=== PATIENT | female | born 1950 | race Caucasian/White ===

== ENCOUNTER → 2018-02-19 | Outpatient (CLI) | payer MEDICARE ==
--- NOTE | 2018-02-20 10:48 | MM ---
Reason for exam: screening (asymptomatic). Last mammogram was performed 1 year and 1 month ago. History: Patient is postmenopausal. Core biopsy of the right breast, 1989. Excisional biopsy of the right breast, 1989. Physical Findings: A clinical breast exam by your physician is recommended on an annual basis and results should be correlated with mammographic findings. MG 3D Screening Mammo W/Cad Bilateral CC and MLO view(s) were taken. Prior study comparison: January 19, 2017, bilateral MG 3d screening mammo w/cad. March 12, 2015, bilateral MG screening mammo w CAD. The breast tissue is heterogeneously dense. This may lower the sensitivity of mammography. There is chronic nodularity in the right breast. There is no discrete abnormality. ASSESSMENT: Negative, BI-RAD 1 RECOMMENDATION: Routine screening mammogram of both breasts in 1 year.
== END | disposition home or self-care (01) ==
LOC: RADMAMWWP 13:34
PROVIDERS: ATTEND Family Medicine
DX: Z12.31 Encounter for screening mammogram for malignant neoplasm of breast (principal)
CPT/HCPCS: 77063; 77067

== ENCOUNTER 2019-10-16 17:10 | Emergency (ER) | payer MEDICARE ==
[2019-10-16 17:22] VITALS: TEMP 98.1
[2019-10-16] MEDS ORDERED: SODIUM CHLORIDE 0.9% 1,000 ML IV STA (17:24)
--- NOTE | 2019-10-16 17:25 | ED ---
Arrhythmia/Palpitations HPI - General Chief Complaint: Arrhythmia/Palpitations Stated Complaint: palpitations Time Seen by Provider: 10/16/19 17:24 Source: patient, RN notes reviewed, old records reviewed Mode of arrival: wheelchair Limitations: no limitations - History of Present Illness Initial Comments: This is a 61-year-old female to the ER for evaluation regards to maybe medication r palpitations suffering from abnormally elevated blood pressure as of late, patient was feeling palpitations persistent palpitations without pain generalized weakness and fatigue. Patient recently changed medications for increasing better control of her blood pressure. Reactive abnormal medications with urinary palpitations not feeling well. Otherwise no headache chest pain shortness with abdominal pain admits to mild depression but not homicidal or suicidal. No drugs or alcohol MD Complaint: palpitations -: days(s) Context: occurred during rest, change in medication Associated Symptoms: other (weakness) Treatments Prior to Arrival: other (none) - Related Data Home Medications Medication Instructions Recorded Confirmed Valsartan/Hydrochlorothiazide 1 tab PO DAILY 09/24/13 11/01/15 [Diovan Hct 80-12.5 mg Tablet] buPROPion XL [Wellbutrin XL] 300 mg PO DAILY 09/24/13 11/01/15 metFORMIN HCL [Glucophage] 500 mg PO DAILY 09/24/13 11/01/15 Atorvastatin [Lipitor] 20 mg PO HS 01/24/14 11/01/15 Citalopram Hydrobromide [CeleXA] 40 mg PO DAILY 01/24/14 11/01/15 LORazepam [Ativan] 1 mg PO HS 11/01/15 11/01/15 Previous Rx's Medication Instructions Recorded Ibuprofen [Motrin] 600 mg PO Q6HR PRN #20 tab 10/31/15 Multivitamins, Thera [Multivitamin 1 each PO DAILY@1200 #30 tab 11/04/15 (formulary)] Sulfamethox-Tmp 800-160Mg [Bactrim 1 tab PO Q12HR #20 tab 11/04/15 DS 800-160 mg] Allergies Allergy/AdvReac Type Severity Reaction Status Date / Time erythromycin base Allergy Nausea & Verified 10/16/19 17:22 Vomiting Review of Systems ROS Statement: Those systems with pertinent positive or pertinent negative responses have been documented in the HPI. ROS Other: All systems not noted in ROS Statement are negative. Past Medical History Past Medical History: Diabetes Mellitus, Hyperlipidemia, Hypertension, Sleep Apnea/CPAP/BIPAP Additional Past Medical History / Comment(s): IBS History of Any Multi-Drug Resistant Organisms: None Reported Past Surgical History: Breast Surgery, Hysterectomy, Tonsillectomy Additional Past Surgical History / Comment(s): breast biopsy, back surgery 2013 with 6 screws, cataract Past Anesthesia/Blood Transfusion Reactions: No Reported Reaction, Motion Sickness Past Psychological History: Depression Smoking Status: Never smoker Past Alcohol Use History: Occasional Past Drug Use History: None Reported - Past Family History Father Family Medical History: Congestive Heart Failure (CHF) General Exam Limitations: no limitations General appearance: alert, in no apparent distress Head exam: Present: atraumatic, normocephalic, normal inspection Eye exam: Present: normal appearance, PERRL, EOMI. Absent: scleral icterus, conjunctival injection, periorbital swelling ENT exam: Present: normal exam, mucous membranes moist Neck exam: Present: normal inspection. Absent: tenderness, meningismus, lymphadenopathy Respiratory exam: Present: normal lung sounds bilaterally. Absent: respiratory distress, wheezes, rales, rhonchi, stridor Cardiovascular Exam: Present: regular rate, normal rhythm, normal heart sounds. Absent: systolic murmur, diastolic murmur, rubs, gallop, clicks GI/Abdominal exam: Present: soft, normal bowel sounds. Absent: distended, tenderness, guarding, rebound, rigid Extremities exam: Present: normal inspection, full ROM, normal capillary refill. Absent: tenderness, pedal edema, joint swelling, calf tenderness Back exam: Present: normal inspection Neurological exam: Present: alert, oriented X3, CN II-XII intact Psychiatric exam: Present: normal affect, normal mood Skin exam: Present: warm, dry, intact, normal color. Absent: rash Course Vital Signs 10/16/19 17:15 Temperature 98.1 F Pulse Rate 91 Respiratory 18 Rate Blood Pressure 134/87 O2 Sat by Pulse 97 Oximetry - Reevaluation(s) Reevaluation #1: 10/16/19 19:12 Medical record is reviewed Reevaluation #2: 10/16/19 19:12 No new significant symptoms will continue to stop new medication Medical Decision Making - Medical Decision Making 61 female with no significant findings labwork is normal symptoms are normal patient can be discharged home to follow-up with primary care - Lab Data Result diagrams: 10/16/19 17:58 10/16/19 17:58 Lab Results 10/16/19 10/16/19 10/16/19 Range/Units 17:58 17:58 17:58 WBC 7.4 (3.8-10.6) k/uL RBC 4.74 (3.80-5.40) m/uL Hgb 13.8 (11.4-16.0) gm/dL Hct 41.6 (34.0-46.0) % MCV 87.6 (80.0-100.0) fL MCH 29.1 (25.0-35.0) pg MCHC 33.2 (31.0-37.0) g/dL RDW 12.9 (11.5-15.5) % Plt Count 280 (150-450) k/uL Neutrophils % 48 % Lymphocytes % 41 % Monocytes % 5 % Eosinophils % 3 % Basophils % 1 % Neutrophils # 3.6 (1.3-7.7) k/uL Lymphocytes # 3.1 (1.0-4.8) k/uL Monocytes # 0.4 (0-1.0) k/uL Eosinophils # 0.2 (0-0.7) k/uL Basophils # 0.1 (0-0.2) k/uL PT 9.9 (9.0-12.0) sec INR 1.0 (<1.2) APTT 23.7 (22.0-30.0) sec Sodium 138 (137-145) mmol/L Potassium 3.9 (3.5-5.1) mmol/L Chloride 105 (98-107) mmol/L Carbon Dioxide 25 (22-30) mmol/L Anion Gap 8 mmol/L BUN 23 H (7-17) mg/dL Creatinine 0.71 (0.52-1.04) mg/dL Est GFR (CKD-EPI)AfAm >90 (>60 ml/min/1.73 sqM) Est GFR (CKD-EPI)NonAf 88 (>60 ml/min/1.73 sqM) Glucose 101 H (74-99) mg/dL Calcium 9.8 (8.4-10.2) mg/dL Phosphorus 3.8 (2.5-4.5) mg/dL Magnesium 2.0 (1.6-2.3) mg/dL Total Bilirubin 0.4 (0.2-1.3) mg/dL AST 25 (14-36) U/L ALT 21 (4-34) U/L Alkaline Phosphatase 89 (38-126) U/L Troponin I (0.000-0.034) ng/mL NT-Pro-B Natriuret Pep pg/mL Total Protein 6.7 (6.3-8.2) g/dL Albumin 4.2 (3.5-5.0) g/dL TSH 2.790 (0.465-4.680) mIU/L Urine Color Urine Appearance (Clear) Urine pH (5.0-8.0) Ur Specific [place] (1.001-1.035) Urine Protein (Negative) Urine Glucose (UA) (Negative) Urine Ketones (Negative) Urine Blood (Negative) Urine Nitrite (Negative) Urine Bilirubin (Negative) Urine Urobilinogen (<2.0) mg/dL Ur Leukocyte Esterase (Negative) Urine WBC (0-5) /hpf Ur Squamous Epith Cells (0-4) /hpf Amorphous Sediment (None) /hpf Urine Bacteria (None) /hpf Urine Mucus (None) /hpf 10/16/19 10/16/19 10/16/19 Range/Units 17:58 17:58 18:00 WBC (3.8-10.6) k/uL RBC (3.80-5.40) m/uL Hgb (11.4-16.0) gm/dL Hct (34.0-46.0) % MCV (80.0-100.0) fL MCH (25.0-35.0) pg MCHC (31.0-37.0) g/dL RDW (11.5-15.5) % Plt Count (150-450) k/uL Neutrophils % % Lymphocytes % % Monocytes % % Eosinophils % % Basophils % % Neutrophils # (1.3-7.7) k/uL Lymphocytes # (1.0-4.8) k/uL Monocytes # (0-1.0) k/uL Eosinophils # (0-0.7) k/uL Basophils # (0-0.2) k/uL PT (9.0-12.0) sec INR (<1.2) APTT (22.0-30.0) sec Sodium (137-145) mmol/L Potassium (3.5-5.1) mmol/L Chloride (98-107) mmol/L Carbon Dioxide (22-30) mmol/L Anion Gap mmol/L BUN (7-17) mg/dL Creatinine (0.52-1.04) mg/dL Est GFR (CKD-EPI)AfAm (>60 ml/min/1.73 sqM) Est GFR (CKD-EPI)NonAf (>60 ml/min/1.73 sqM) Glucose (74-99) mg/dL Calcium (8.4-10.2) mg/dL Phosphorus (2.5-4.5) mg/dL Magnesium (1.6-2.3) mg/dL Total Bilirubin (0.2-1.3) mg/dL AST (14-36) U/L ALT (4-34) U/L Alkaline Phosphatase (38-126) U/L Troponin I <0.012 (0.000-0.034) ng/mL NT-Pro-B Natriuret Pep 37 pg/mL Total Protein (6.3-8.2) g/dL Albumin (3.5-5.0) g/dL TSH (0.465-4.680) mIU/L Urine Color Yellow Urine Appearance Cloudy H (Clear) Urine pH 7.0 (5.0-8.0) Ur Specific [place] 1.029 (1.001-1.035) Urine Protein Negative (Negative) Urine Glucose (UA) Negative (Negative) Urine Ketones Negative (Negative) Urine Blood Negative (Negative) Urine Nitrite Negative (Negative) Urine Bilirubin Negative (Negative) Urine Urobilinogen 3.0 (<2.0) mg/dL Ur Leukocyte Esterase Large H (Negative) Urine WBC 41 H (0-5) /hpf Ur Squamous Epith Cells 4 (0-4) /hpf Amorphous Sediment Rare H (None) /hpf Urine Bacteria Rare H (None) /hpf Urine Mucus Few H (None) /hpf - Radiology Data Radiology results: report reviewed (Chest x-rays negative for acute disease), image reviewed Disposition Clinical Impression: Palpitations Disposition: HOME SELF-CARE Condition: Good Instructions (If sedation given, give patient instructions): Heart Palpitations (ED) Is patient prescribed a controlled substance at d/c from ED?: No Referrals: Ori Parra MD [Primary Care Provider] - 1-2 days
[2019-10-16 18:07] LABS: Basophils # (A) 0.1 k/uL (0-0.2); Basophils % (A) 1 %; Eosinophils # (A) 0.2 k/uL (0-0.7); Eosinophils % (A) 3 %; HCT 41.6 % (34.0-46.0); HGB 13.8 gm/dL (11.4-16.0); Lymphocytes # (A) 3.1 k/uL (1.0-4.8); Lymphocytes % (A) 41 %; MCH 29.1 pg (25.0-35.0); MCHC 33.2 g/dL (31.0-37.0); MCV 87.6 fL (80.0-100.0); Mean Platelet Volume 7.2; Monocytes # (A) 0.4 k/uL (0-1.0); Monocytes % (A) 5 %; Neutrophils # (A) 3.6 k/uL (1.3-7.7); Neutrophils % (A) 48 %; Platelet Count 280 k/uL (150-450); RBC 4.74 m/uL (3.80-5.40); RDW 12.9 % (11.5-15.5); WBC 7.4 k/uL (3.8-10.6)
[2019-10-16 18:19] LABS: Amorphous Sediment,Urine Rare /hpf; Appearance,Urine Cloudy (Clear); Bacteria,Urine Rare /hpf; Bilirubin,Urine Negative (Negative); Blood,Urine Negative (Negative); Color,Urine Yellow; Glucose,Urine (UA) Negative (Negative); Ketones,Urine Negative (Negative); Leukocyte Esterase,Urine Large (Negative); Mucus,Urine Few /hpf; Nitrite,Urine Negative (Negative); Protein,Urine Negative (Negative); Specific Gravity,Urine 1.029 (1.001-1.035); Squamous Epithelial Cell,Urine 4 /hpf (0-4); WBC,Urine 41 /hpf (0-5)
[2019-10-16 18:19] LABS: ALT 21 U/L (4-34); AST 25 U/L (14-36); African American GFR (CKD) >90 (>60 ml/min/1.73 sqM); Albumin 4.2 g/dL (3.5-5.0); Alkaline Phosphatase 89 U/L (38-126); Anion Gap 8 mmol/L; Blood Urea Nitrogen 23 mg/dL (7-17); Calcium 9.8 mg/dL (8.4-10.2); Carbon Dioxide 25 mmol/L (22-30); Chloride 105 mmol/L (98-107); Glucose 101 mg/dL (74-99); Non-African American GFR(CKD) 88 (>60 ml/min/1.73 sqM); Phosphorus 3.8 mg/dL (2.5-4.5); Potassium 3.9 mmol/L (3.5-5.1); Sodium 138 mmol/L (137-145); Total Bilirubin 0.4 mg/dL (0.2-1.3); Total Protein 6.7 g/dL (6.3-8.2)
[2019-10-16 18:25] LABS: Partial Thromboplastin Time 23.7 sec (22.0-30.0); Prothrombin Time 9.9 sec (9.0-12.0)
--- NOTE | 2019-10-16 18:38 | XR ---
EXAMINATION TYPE: XR chest 2V DATE OF EXAM: 10/16/2019 COMPARISON: 01/24/2014 HISTORY: Chest pain TECHNIQUE: 2 views. FINDINGS: Heart and mediastinum are normal. Lungs are clear. Diaphragm is normal. Bony thorax appears normal. T here is posterior fusion surgery in the lower thoracic spine. There is thoracolumbar kyphotic deformi ty. There is 40% anterior wedging of T11 vertebra. IMPRESSION: No active cardiopulmonary disease. No adverse change compared to old exam.
[2019-10-16 20:12] VITALS: BP 145/81; PULSE 76; RESP 17
== END 2019-10-16 20:18 | disposition home or self-care (01) ==
LOC: EC 17:10
DX: R00.2 Palpitations (principal); R53.1 Weakness; F32.9 Major depressive disorder, single episode, unspecified; I10 Essential (primary) hypertension; G47.30 Sleep apnea, unspecified; E78.5 Hyperlipidemia, unspecified; E11.9 Type 2 diabetes mellitus without complications; Z79.84 Long term (current) use of oral hypoglycemic drugs; Z79.899 Other long term (current) drug therapy; Z88.1 Allergy status to other antibiotic agents
CPT/HCPCS: 36415; 93005; 83880; 80053; 83735; 84100; 84443; 84484; 85025; 85610; 85730; 81001; 87086; 71046; 99285; 96365; 96361; J0696

== ENCOUNTER → 2019-12-04 | Outpatient (CLI) | payer MEDICARE ==
--- NOTE | 2019-12-05 08:00 | BD ---
EXAMINATION TYPE: Axial Bone Density DATE OF EXAM: 12/04/2019 COMPARISON: DEXA bone scan 2011 CLINICAL HISTORY: Postmenopausal female Height: 65 Weight: 198.0 FRAX RISK QUESTIONS: Alcohol (3 or more units per day): no Family History (Parent hip fracture): no Glucocorticoids (More than 3mos): no (Ex: prednisone, prednisolone, methylprednisolone, dexamethasone, and hydrocortisone). History of Fracture in Adulthood: yes Secondary Osteoporosis: 1. Type 1 Diabetes: no 2. Hyperthyroidism: no 3. Menopause before 45: no 4. Malnutrition: no 5. Chronic liver disease: no Rheumatoid Arthritis: no Current Tobacco Use: no RISK FACTORS HISTORY OF: Spine Fracture: t spine When: 2013 Surgery to Spine/Hip(right/left)/Wrist (right/left): T-spine When: 2013 Family History of Osteoporosis: yes Active: sometimes Diet low in dairy products/other sources of calcium: no Postmenopausal woman: age 52 Lost more than 2 inches in height since high school: no MEDICATIONS: blood pressure meds, celexa, bupropion Additional History: EXAM MEASUREMENTS: Bone mineral densitometry was performed using the [employer] System. Bone mineral density as measured about the Lumbar spine is: ----- L1-L4(G/cm2): 1.409 T Score Values are as follows: ----- L2: 1.1 ----- L3: 2.3 ----- L4: 1.8 ----- L1-L4: 1.9 Bone mineral density has: increased 0.5 % since study of: 09.28.2011 Bone mineral density about the R hip (g/cm2): 0.969 Bone mineral density about the L hip (g/cm2):0.939 T Score values are as follows: -----R Neck: -0.5 -----L Neck: -0.7 -----R Total: 0.3 -----L Total: 0.2 Bone mineral density has: decreased -1.0 % since study of: 09.28.2011 IMPRESSION: Normal (Values between +1 and -1 indicate normal bone mass). Consider repeating this study in 5 year s or sooner if there is some new clinical indication. NOTE: T-SCORE=SD OF THE YOUNG ADULT MEAN.
--- NOTE | 2019-12-05 14:11 | MM ---
Reason for exam: screening (asymptomatic). Last mammogram was performed 1 year and 9 months ago. History: Patient is postmenopausal. Core biopsy of the right breast, 1989. Excisional biopsy of the right breast, 1989. Physical Findings: A clinical breast exam by your physician is recommended on an annual basis and results should be correlated with mammographic findings. MG 3D Screening Mammo W/Cad Bilateral CC and MLO view(s) were taken. Prior study comparison: February 19, 2018, bilateral MG 3d screening mammo w/cad. January 19, 2017, bilateral MG 3d screening mammo w/cad. The breast tissue is heterogeneously dense. This may lower the sensitivity of mammography. Finding #1: There is a mass in the upper outer quadrant of the right breast. Finding #2: There are typically benign calcifications in both breasts. Unchanged focal asymmetry. No significant changes in finding since February 19, 2018 and January 19, 2017. ASSESSMENT: Benign, BI-RAD 2 RECOMMENDATION: Routine screening mammogram of both breasts in 1 year.
== END | disposition home or self-care (01) ==
LOC: RADMAMWWP 14:47
PROVIDERS: ATTEND Family Medicine
DX: Z12.31 Encounter for screening mammogram for malignant neoplasm of breast (principal); Z78.0 Asymptomatic menopausal state
CPT/HCPCS: 77063; 77067; 77080

== ENCOUNTER → 2021-12-06 | Outpatient (CLI) | payer MEDICARE ==
--- NOTE | 2021-12-06 17:14 | BD ---
EXAMINATION TYPE: Axial Bone Density DATE OF EXAM: 12/06/2021 COMPARISON: 12.04.2019 STUDY, UNAVAILABLE....TRENDED TO 09.28.2011 STUDY CLINICAL HISTORY: 71 years year old Female. ICD-10 CODE: Z13.820 Screening Osteoporosis Height: 64 Weight: 192 FRAX RISK QUESTIONS: Family History (Parent hip fracture): YES History of Fracture in Adulthood: YES RISK FACTORS HISTORY OF: HX OF FX TO T-SPINE AT AGE 61 Surgery to Spine....THORACIC SPINE ONLY, FROM FX TO T SPINE AT AGE 61 YRS OLD Family History of Osteoporosis: YES Postmenopausal woman: YES, AT 52 YRS OLD Hyperparathyroidism: NO Adrenal Insufficiency: NO MEDICATIONS: Prednisone or other steroids: IN THE PAST, BUT NONE NOW Additional Medications: BP MEDS, CELEXA, BUPROPION, METFORMIN, REFLUX MEDS, STATIN FOR CHOLESTEROL, Additional History: HYPERTENSION, DIABETIC, REFLUX, ANXIETY, CHOLESTEROL, EXAM MEASUREMENTS: Bone mineral densitometry was performed using the [employer] System. Bone mineral density as measured about the Lumbar spine is: ----- L1-L4(G/cm2): 1.391 T Score Values are as follows: ----- L1: 1.7 ----- L2: 0.0 ----- L3: 2.1 ----- L4: 2.1 ----- L1-L4: 1.8 Bone mineral density has: Increased 0.7% SINCE: 09.28.2011 Bone mineral density about the R hip (g/cm2): 1.061 Bone mineral density about the L hip (g/cm2): 1.006 T Score values are as follows: -----R Neck: -0.6 -----L Neck: -0.8 -----R Total: 0.4 -----L Total: 0.0 Bone mineral density has: Decreased -1.8% SINCE: 09.28.2011 FRAX%s: The graph provided illustrates a 19.5%nce for a major osteoporotic fx and a 2.4%ance for the hips probability for fx in 10 years time. IMPRESSION: Normal (Values between +1 and -1 indicate normal bone mass). Consider repeating this study in 5 year s or sooner if there is some new clinical indication. NOTE: T-SCORE=SD OF THE YOUNG ADULT MEAN.
--- NOTE | 2021-12-07 12:19 | MM ---
Reason for Exam: Screening (asymptomatic). Last mammogram was performed 2 year(s) and 0 month(s) ago. Patient History: Menarche at age 15. First Full-Term at age 24. Left ovary removed at age 44. Hysterectomy at age 44. Postmenopausal. 1989, Core Biopsy on the Right side. 1989, Excisional Biopsy on the Right side. Risk Values: Viola 5 year model risk: 2.1%. NCI Lifetime model risk: 6.2%. Prior Study Comparison: 01/19/2017 Bilateral Screening Mammogram, [facility]. 02/19/2018 Bilateral Screening Mammogram, [facility]. 12/04/2019 Bilateral Screening Mammogram, [facility]. Tissue Density: The breast tissue is heterogeneously dense. This may lower the sensitivity of mammography. Findings: Analyzed By CAD. There is a bilaterally symmetric density remain unchanged. Unchanged intramammary lymph node upper outer quadrant right breast. No significant change from prior exams. Overall Assessment: Benign, BI-RAD 2 Management: Screening Mammogram of both breasts in 1 year. 1. Patient should continue monthly self breast exams. 2. A clinical breast exam by your physician is recommended on an annual basis. 3. This exam should not preclude additional follow-up of suspicious palpable abnormalities. Electronically signed and approved by: Mami Suarez M.D. Radiologist
== END | disposition home or self-care (01) ==
LOC: RADBDWWP 10:21
PROVIDERS: ATTEND Family Medicine
DX: Z12.31 Encounter for screening mammogram for malignant neoplasm of breast (principal); Z13.820 Encounter for screening for osteoporosis; I10 Essential (primary) hypertension; E11.9 Type 2 diabetes mellitus without complications; Z78.0 Asymptomatic menopausal state
CPT/HCPCS: 77063; 77067; 77080

== ENCOUNTER → 2023-02-20 | Outpatient (CLI) | payer MEDICARE ==
--- NOTE | 2023-02-21 21:08 | MM ---
Reason for Exam: Screening (asymptomatic). Last mammogram was performed 1 year(s) and 3 month(s) ago. Patient History: Menarche at age 15. First Full-Term at age 24. Left ovary removed at age 44. Hysterectomy at age 44. Postmenopausal. Patient has history of breast feeding. 1989, Core Biopsy on the Right side. 1989, Excisional Biopsy on the Right side. Daughter had breast cancer, age 41. Risk Values: Viola 5 year model risk: 4.5%. NCI Lifetime model risk: 12.2%. Prior Study Comparison: 02/19/2018 Bilateral Screening Mammogram, [facility]. 12/04/2019 Bilateral Screening Mammogram, [facility]. 12/06/2021 Bilateral MG 3D screening mammo w/cad, [facility]. Tissue Density: The breast tissue is heterogeneously dense. This may lower the sensitivity of mammography. Findings: Analyzed By CAD. There is chronic nodularity on the right. There is no suspicious group of microcalcifications or new suspicious mass in either breast. Overall Assessment: Benign, BI-RAD 2 Management: Screening Mammogram of both breasts in 1 year. See note below in regards to patient's increased five-year Viola score. Patient should continue monthly self-breast exams. A clinical breast exam by your physician is recommended on an annual basis. This exam should not preclude additional follow-up of suspicious palpable abnormalities. Note on Viola scores and lifetime risk: 1. A Viola score greater than 3% is considered moderate risk. If this is the case, consider specialist referral to assess eligibility for a risk reducing agent. 2. If overall lifetime risk for the development of breast cancer is 20% or higher, the patient may qualify for future screening with alternating mammogram and breast MRI. Electronically signed and approved by: Mami Suarez M.D. Radiologist
== END | disposition home or self-care (01) ==
LOC: RADMAMWWP 11:31
PROVIDERS: ATTEND Family Medicine
DX: Z12.31 Encounter for screening mammogram for malignant neoplasm of breast (principal); Z80.3 Family history of malignant neoplasm of breast; Z78.0 Asymptomatic menopausal state
CPT/HCPCS: 77063; 77067

== ENCOUNTER 2023-11-16 08:28 | Emergency (ER) | payer MEDICARE ==
[2023-11-16 08:34] VITALS: RESP 18; TEMP 97.4
--- NOTE | 2023-11-16 09:02 | ED ---
General Adult HPI - General Chief complaint: Recheck/Abnormal Lab/Rx Stated complaint: high blood pressure Time Seen by Provider: 11/16/23 08:38 Source: patient, RN notes reviewed, old records reviewed Mode of arrival: ambulatory Limitations: physical limitation - History of Present Illness Initial comments: 73-year-old female presenting for evaluation of hypertension, anxiety, restlessness after starting prednisone yesterday. Patient does state that her blood pressure has been trending up over the past 1 week and she contacted her primary care provider for medication adjustment. However after starting prednisone this number has increased further she states she did not feel well after taking the prednisone. No fever. No chest pain. Mild nausea no vomiting. She also states she took an edible THC product yesterday which is abnormal for her. - Related Data Home Medications Medication Instructions Recorded Confirmed buPROPion XL [Wellbutrin XL] 300 mg PO DAILY 09/24/13 11/16/23 Atorvastatin [Lipitor] 20 mg PO HS 01/24/14 11/16/23 Citalopram Hydrobromide [CeleXA] 20 mg PO DAILY 11/16/23 11/16/23 Eszopiclone [Lunesta] 2 mg PO HS 11/16/23 11/16/23 Losartan/Hydrochlorothiazide 1 tab PO DAILY 11/16/23 11/16/23 [Hyzaar 100-25 Tablet] Metoprolol Succinate (ER) [Toprol 50 mg PO DAILY 11/16/23 11/16/23 Xl] Metoprolol Tartrate [Lopressor] 25 mg PO DAILY PRN 11/16/23 11/16/23 Pramipexole [Mirapex] 0.125 mg PO HS 11/16/23 11/16/23 metFORMIN HCL ER [Glucophage XR] 500 mg PO DAILY 11/16/23 11/16/23 rOPINIRole HCL [Requip] 0.25 mg PO HS 11/16/23 11/16/23 traMADol HCL 50 mg PO Q8H PRN 11/16/23 11/16/23 Previous Rx's Medication Instructions Recorded amLODIPine [Norvasc] 5 mg PO DAILY #30 tab 11/16/23 Allergies Allergy/AdvReac Type Severity Reaction Status Date / Time erythromycin base Allergy Nausea & Verified 11/16/23 10:27 Vomiting prednisone AdvReac "Dizzy & Verified 11/16/23 10:27 Flush" Review of Systems ROS Statement: Those systems with pertinent positive or pertinent negative responses have been documented in the HPI. ROS Other: All systems not noted in ROS Statement are negative. Past Medical History Past Medical History: Diabetes Mellitus, Hyperlipidemia, Hypertension, Sleep Apnea/CPAP/BIPAP Additional Past Medical History / Comment(s): IBS History of Any Multi-Drug Resistant Organisms: None Reported Past Surgical History: Breast Surgery, Hysterectomy, Tonsillectomy Additional Past Surgical History / Comment(s): breast biopsy, back surgery 2013 with 6 screws, cataract Past Anesthesia/Blood Transfusion Reactions: No Reported Reaction, Motion Sickness Past Psychological History: Depression Smoking Status: Never smoker Past Alcohol Use History: Occasional Past Drug Use History: None Reported - Past Family History Father Family Medical History: Congestive Heart Failure (CHF) General Exam Limitations: physical limitation General appearance: alert, in no apparent distress Head exam: Present: atraumatic, normocephalic Eye exam: Present: normal appearance, PERRL ENT exam: Present: normal exam Neck exam: Present: normal inspection. Absent: tenderness, meningismus Respiratory exam: Present: normal lung sounds bilaterally. Absent: respiratory distress, wheezes Cardiovascular Exam: Present: regular rate, normal rhythm GI/Abdominal exam: Present: soft. Absent: distended, tenderness Extremities exam: Present: normal inspection, normal capillary refill Neurological exam: Present: alert, oriented X3, CN II-XII intact. 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 sent in by a medical professional or institution (, PA, OFFICE CLINICIAN, urgent care, hospital, or long term...) When possible be specific @ -No Did you speak to anyone other than the patient for history (EMS, parent, family, police, friend...)? What history was obtained from this source @ -No Did you review nursing and triage notes (agree or disagree)? Why? @ -I reviewed and agree with nursing and triage notes Were old charts reviewed (outside hosp., previous admission, EMS record, old EKG, old radiological studies, urgent care reports/EKG's, long term records)? Report findings @ -No old charts were reviewed Differential Diagnosis: Adverse drug reaction, electrolyte abnormality, hypertensive urgency, hypertensive emergency, asymptomatic hypertension EKG interpreted by me (3pts min.). @Sinus rhythm rate of 71 NV interval 178, QRS duration 101, QTc [address] segment elevation, T wave inversion in the precordial leads. X-rays interpreted by me (1pt min.). @ -None done CT interpreted by me (1pt min.). @ -None done U/S interpreted by me (1pt. min.). @ -None done What testing was considered but not performed or refused? (CT, X-rays, U/S, labs)? Why? @ -None What meds were considered but not given or refused? Why? @ -None Did you discuss the management of the patient with other professionals (professionals i.e. , PA, OFFICE CLINICIAN, lab, RT, psych nurse, administrator social welfare, oil well pumper, teacher, surveillance sensor officer, manager case management)? Give summary @ -No Was smoking cessation discussed for >3mins.? @ -No Was critical care preformed (if so, how long)? @ -No Were there social determinants of health that impacted care today? How? (Homelessness, low income, unemployed, alcoholism, drug addiction, transportation, low edu. Level, literacy, decrease access to med. care, assisted, rehab)? @ -No Was there de-escalation of care discussed even if they declined (Discuss DNR or withdrawal of care, Hospice)? DNR status @ -No What co-morbidities impacted this encounter? (DM, HTN, Smoking, COPD, CAD, Cancer, CVA, ARF, Chemo, Hep., AIDS, mental health diagnosis, sleep apnea, morbid obesity)? @ -None Was patient admitted / discharged? Hospital course, mention meds given and route, prescriptions, significant lab abnormalities, going to OR and other pertinent info. @ -[73-year-old female with insomnia, hypertension, patient was started on prednisone and took THC edible yesterday evening. Patient is hypertensive currently on losartan, long-acting metoprolol. I did obtain EKG and laboratory testing which is unremarkable. Patient will be given additional antihypertensive medication and will monitor her blood pressure closely and follow-up with her primary care provider. Return parameters discussed. Undiagnosed new problem with uncertain prognosis? @ -No Drug Therapy requiring intensive monitoring for toxicity (Heparin, Nitro, Insulin, Cardizem)? @ -No Were any procedures done? @ -No Diagnosis/symptom? @ -[Adverse drug reaction, hypertension Acute, or Chronic, or Acute on Chronic? @ -acute Uncomplicated (without systemic symptoms) or Complicated (systemic symptoms)? @ -Default Side effects of treatment? @ -No Exacerbation, Progression, or Severe Exacerbation? @ -No Poses a threat to life or bodily function? How? (Chest pain, [place], [place], pneumonia, PE, COPD, DKA, ARF, appy, cholecystitis, CVA, Diverticulitis, Homicidal, Suicidal, threat to staff... and all critical care pts) @ -[low risk - Lab Data Result diagrams: 11/16/23 09:44 11/16/23 09:44 Lab Results 11/16/23 11/16/23 11/16/23 Range/Units 09:44 09:44 09:44 WBC 8.8 (3.8-10.6) k/uL RBC 4.37 (3.80-5.40) m/uL Hgb 13.2 (11.4-16.0) gm/dL Hct 38.0 (34.0-46.0) % MCV 87.0 (80.0-100.0) fL MCH 30.1 (25.0-35.0) pg MCHC 34.7 (31.0-37.0) g/dL RDW 12.9 (11.5-15.5) % Plt Count 261 (150-450) k/uL MPV 7.5 Neutrophils % 66 % Lymphocytes % 25 % Monocytes % 7 % Eosinophils % 1 % Basophils % 0 % Neutrophils # 5.8 (1.3-7.7) k/uL Lymphocytes # 2.2 (1.0-4.8) k/uL Monocytes # 0.6 (0-1.0) k/uL Eosinophils # 0.1 (0-0.7) k/uL Basophils # 0.0 (0-0.2) k/uL Sodium 136 L (137-145) mmol/L Potassium 3.9 (3.5-5.1) mmol/L Chloride 104 (98-107) mmol/L Carbon Dioxide 25 (22-30) mmol/L Anion Gap 7 mmol/L BUN 26 H (7-17) mg/dL Creatinine 0.68 (0.52-1.04) mg/dL Est GFR (CKD-EPI)AfAm >90 (>60 ml/min/1.73 sqM) Est GFR (CKD-EPI)NonAf 88 (>60 ml/min/1.73 sqM) Glucose 150 H (74-99) mg/dL POC Glucose (mg/dL) (70-110) mg/dL POC Glu Nozzle Worker ID Calcium 9.8 (8.4-10.2) mg/dL Magnesium 1.8 (1.6-2.3) mg/dL Total Bilirubin 0.9 (0.2-1.3) mg/dL AST 27 (14-36) U/L ALT 17 (4-34) U/L Alkaline Phosphatase 69 (38-126) U/L Troponin I 0.017 (0.000-0.034) ng/mL Total Protein 6.8 (6.3-8.2) g/dL Albumin 4.3 (3.5-5.0) g/dL 11/16/23 Range/Units 10:29 WBC (3.8-10.6) k/uL RBC (3.80-5.40) m/uL Hgb (11.4-16.0) gm/dL Hct (34.0-46.0) % MCV (80.0-100.0) fL MCH (25.0-35.0) pg MCHC (31.0-37.0) g/dL RDW (11.5-15.5) % Plt Count (150-450) k/uL MPV Neutrophils % % Lymphocytes % % Monocytes % % Eosinophils % % Basophils % % Neutrophils # (1.3-7.7) k/uL Lymphocytes # (1.0-4.8) k/uL Monocytes # (0-1.0) k/uL Eosinophils # (0-0.7) k/uL Basophils # (0-0.2) k/uL Sodium (137-145) mmol/L Potassium (3.5-5.1) mmol/L Chloride (98-107) mmol/L Carbon Dioxide (22-30) mmol/L Anion Gap mmol/L BUN (7-17) mg/dL Creatinine (0.52-1.04) mg/dL Est GFR (CKD-EPI)AfAm (>60 ml/min/1.73 sqM) Est GFR (CKD-EPI)NonAf (>60 ml/min/1.73 sqM) Glucose (74-99) mg/dL POC Glucose (mg/dL) 149 H (70-110) mg/dL POC Glu Nozzle Worker ID Natalie Resendez Calcium (8.4-10.2) mg/dL Magnesium (1.6-2.3) mg/dL Total Bilirubin (0.2-1.3) mg/dL AST (14-36) U/L ALT (4-34) U/L Alkaline Phosphatase (38-126) U/L Troponin I (0.000-0.034) ng/mL Total Protein (6.3-8.2) g/dL Albumin (3.5-5.0) g/dL Disposition Clinical Impression: Hypertension, Adverse drug interaction Disposition: HOME SELF-CARE Condition: Fair Instructions (If sedation given, give patient instructions): Hypertension (ED) Prescriptions: amLODIPine [Norvasc] 5 mg PO DAILY #30 tab Is patient prescribed a controlled substance at d/c from ED?: No Referrals: Dionisio London MD [Primary Care Provider] - 1-2 days Time of Disposition: 11:56
[2023-11-16 10:07] LABS: Basophils % (A) 0 %; Eosinophils # (A) 0.1 k/uL (0-0.7); Eosinophils % (A) 1 %; HGB 13.2 gm/dL (11.4-16.0); Lymphocytes # (A) 2.2 k/uL (1.0-4.8); Lymphocytes % (A) 25 %; MCH 30.1 pg (25.0-35.0); MCHC 34.7 g/dL (31.0-37.0); Mean Platelet Volume 7.5; Monocytes # (A) 0.6 k/uL (0-1.0); Monocytes % (A) 7 %; Neutrophils # (A) 5.8 k/uL (1.3-7.7); Neutrophils % (A) 66 %; Platelet Count 261 k/uL (150-450); RBC 4.37 m/uL (3.80-5.40); RDW 12.9 % (11.5-15.5); WBC 8.8 k/uL (3.8-10.6)
[2023-11-16 10:23] LABS: ALT 17 U/L (4-34); African American GFR (CKD) >90 (>60 ml/min/1.73 sqM); Albumin 4.3 g/dL (3.5-5.0); Anion Gap 7 mmol/L; Blood Urea Nitrogen 26 mg/dL (7-17); Calcium 9.8 mg/dL (8.4-10.2); Carbon Dioxide 25 mmol/L (22-30); Chloride 104 mmol/L (98-107); Glucose 150 mg/dL (74-99); Non-African American GFR(CKD) 88 (>60 ml/min/1.73 sqM); Sodium 136 mmol/L (137-145); Total Bilirubin 0.9 mg/dL (0.2-1.3); Total Protein 6.8 g/dL (6.3-8.2)
[2023-11-16 10:25] LABS: Potassium 3.9 mmol/L (3.5-5.1)
[2023-11-16 10:26] LABS: AST 27 U/L (14-36); Alkaline Phosphatase 69 U/L (38-126); Magnesium 1.8 mg/dL (1.6-2.3)
[2023-11-16 10:30] LABS: Glucose,Whole Blood 149 mg/dL (70-110)
[2023-11-16 12:29] VITALS: BP 165/93; PULSE 86
== END 2023-11-16 12:29 | disposition home or self-care (01) ==
LOC: EC 08:28
CPT/HCPCS: 36415; 80053; 83735; 84484; 85025; 93005; 99283

== ENCOUNTER → 2024-07-31 | Outpatient (CLI) | payer MEDICARE ==
[2024-07-31 15:34] LABS: Alkaline Phosphatase 88 U/L (41-126); C Reactive Protein <0.30 mg/dL (0.00-0.80)
[2024-07-31 15:59] LABS: Basophils # (A) 0.03 X 10*3/uL (0.00-0.10); Basophils % (A) 0.4 %; Eosinophils # (A) 0.13 X 10*3/uL (0.04-0.35); Eosinophils % (A) 1.9 %; HCT 41.1 % (37.2-46.3); HGB 13.6 g/dL (12.0-15.0); Lymphocytes # (A) 2.18 X 10*3/uL (0.90-5.00); Lymphocytes % (A) 31.8 %; MCH 29.6 pg (27.0-32.0); MCHC 33.1 g/dL (32.0-37.0); MCV 89.5 FL (80.0-97.0); Mean Platelet Volume 10.1 FL (9.5-12.2); Monocytes # (A) 0.56 X 10*3/uL (0.20-1.00); Monocytes % (A) 8.2 %; NRBC Per 100 WBC 0 X 10*3/uL (0.00-0.01); Neutrophils # (A) 3.94 X 10*3/uL (1.80-7.70); Neutrophils % (A) 57.4 %; Platelet Count 269 X 10*3/uL (140-440); RBC 4.59 X 10*6/uL (4.10-5.20); RDW 13.2 % (11.5-14.5); WBC 6.86 X 10*3/uL (4.50-10.00)
[2024-07-31 16:08] LABS: Erythrocyte Sedimentation Rate 11 mm/Hr (0-30)
== END | disposition home or self-care (01) ==
LOC: LABWHC1 08:48
PROVIDERS: ATTEND Psychiatry & Neurology Neurology
DX: R51.9 Headache, unspecified (principal)
CPT/HCPCS: 36415; 84075; 85025; 85652; 86140

== ENCOUNTER → 2024-08-27 | Outpatient (CLI) | payer MEDICARE ==
[2024-08-27 13:35] VITALS: BP 146/90; PULSE 79; RESP 18; TEMP 98.1
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
== END ==
LOC: 3 N SLEEP 13:11
PROVIDERS: ATTEND Internal Medicine Critical Care Medicine
DX: G47.33 Obstructive sleep apnea (adult) (pediatric) (principal); E66.9 Obesity, unspecified; F41.9 Anxiety disorder, unspecified; F32.A Depression, unspecified; E11.9 Type 2 diabetes mellitus without complications; I10 Essential (primary) hypertension; E78.5 Hyperlipidemia, unspecified; Z68.31 Body mass index [BMI] 31.0-31.9, adult; Z88.1 Allergy status to other antibiotic agents; Z88.8 Allergy status to other drugs, medicaments and biological substances
CPT/HCPCS: 99211

== ENCOUNTER 2024-09-23 19:26 | Outpatient (CLI) | payer MEDICARE ==
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
== END 2024-09-24 05:40 | disposition home or self-care (01) ==
LOC: 3 N SLEEP 19:26
PROVIDERS: ATTEND Internal Medicine Critical Care Medicine
DX: G47.33 Obstructive sleep apnea (adult) (pediatric) (principal); F32.A Depression, unspecified; F41.9 Anxiety disorder, unspecified; E11.9 Type 2 diabetes mellitus without complications; I10 Essential (primary) hypertension; E78.5 Hyperlipidemia, unspecified; E66.9 Obesity, unspecified; V89.2XXA Person injured in unspecified motor-vehicle accident, traffic, initial encounter; Z99.89 Dependence on other enabling machines and devices; Z88.1 Allergy status to other antibiotic agents; Z88.8 Allergy status to other drugs, medicaments and biological substances; Z68.31 Body mass index [BMI] 31.0-31.9, adult
CPT/HCPCS: 95810